=== PATIENT | female | born 1990 | race Two or more races ===

== ENCOUNTER 2021-12-09 10:02 | Day surgery (SDC) | payer OTHER ==
[~2021-12-09] VITALS: Ht 160 cm; Wt 59.4 kg
[~2021-12-09 10:02] MED LIST: LR 1,000 ML IV ONE; METR-265 PO
[2021-12-09] MEDS ORDERED: KETOROLAC 60MG 2ML VIAL As Ordered ONE (10:53)
[2021-12-09] MEDS ORDERED: ONDANSETRON 4MG/2ML VIAL As Ordered ONE (10:53)
[2021-12-09] MEDS ORDERED: LIDOCAINE 2% 100MG/5ML SDV (FOR ANES.) As Ordered ONE (10:53)
[2021-12-09] MEDS ORDERED: fentaNYL 100 MCG/2 ML INJECTION As Ordered ONE (10:53)
[2021-12-09] MEDS ORDERED: MIDAZOLAM INJ 2MG/2ML VIAL (J2250 PER 1MG) As Ordered ONE (10:53)
[2021-12-09] MEDS ORDERED: propofoL 500 MG/50 ML VIAL As Ordered ONE (10:53)
[2021-12-09] MEDS ORDERED: dexameTHASONE 4 MG/ML 1ML VIAL (J1100 PER 1MG) As Ordered ONE (10:53)
[2021-12-09 11:01] LABS: HEMATOCRIT 34.4 % (36.0-47.0); HEMOGLOBIN 12.2 g/dl (12.0-15.5); MEAN CORPUSCULAR HEMOGLOBIN 33.3 pg (27.0-33.0); MEAN CORPUSCULAR HGB CONC 35.5 g/dl (32.0-36.5); PLATELET COUNT, AUTOMATED 188 10^3/uL (150-450); RED BLOOD COUNT 3.66 10^6/uL (4.00-5.40); WHITE BLOOD COUNT 4.9 10^3/uL (4.0-10.0)
[2021-12-09 11:36] LABS: HCG, SERUM QUALITATIVE NEGATIVE (NEGATIVE)
[2021-12-09] MEDS ORDERED: ONDANSETRON 4MG/2ML VIAL IV PRN (12:50)
[2021-12-09] MEDS ORDERED: LR 1,000 ML IV SCH (12:50)
[2021-12-09] MEDS ORDERED: METOCLOPRAMIDE INJ 10MG/2ML VIAL (J2765 PER 1) IV PRN (12:50)
[2021-12-09] MEDS ORDERED: PERCOCET 5MG/325MG TAB PO PRN (12:50)
[2021-12-09 13:20] VITALS: BP 112/80
== END 2021-12-09 13:30 | disposition home or self-care (01) ==
LOC: M SDC 10:02
PROVIDERS: ATTEND Obstetrics & Gynecology
DX: T83.32XA Displacement of intrauterine contraceptive device, initial encounter (principal); F17.290 Nicotine dependence, other tobacco product, uncomplicated
CPT/HCPCS: 36415; 58562; 84703; 85027; 88300; J1100; J1885; J2250; J2405; J3010

== ENCOUNTER 2022-01-01 14:35 | Emergency (ER) | payer OTHER ==
[~2022-01-01] VITALS: Ht 160 cm; Wt 59.1 kg
[~2022-01-01 14:35] MED LIST changes: -LR 1,000 ML IV ONE
[2022-01-01 17:02] LABS: ERYTHROCYTE SEDIMENTATION RATE 5 mm/hr (0-20)
[2022-01-01 17:11] LABS: INR 1.05; PROTHROMBIN TIME 14.1 SECONDS (12.7-14.5)
[2022-01-01 17:12] LABS: PARTIAL THROMBOPLASTIN TIME 28.3 SECONDS (25.9-37.0)
[2022-01-01 17:13] LABS: ALT/SGPT 16 U/L (12-78); BILIRUBIN,DIRECT 0.1 MG/DL (0.0-0.2); BILIRUBIN,TOTAL 0.7 MG/DL (0.2-1.0); C REACTIVE PROTEIN QUANTITATIV < 0.30 MG/DL (0.00-0.30); TOTAL PROTEIN 6.9 GM/DL (6.4-8.2)
[2022-01-01] MEDS ORDERED: ISOVUE-370 76% 100ML VIAL As Ordered ONE (17:39)
[2022-01-01 17:51] LABS: BASO % 0.5 % (0.0-1.0); EOS # 0.1 10^3/uL (0.0-0.5); EOS % 1.3 % (0.0-3.0); HEMATOCRIT 38.3 % (36.0-47.0); HEMOGLOBIN 13.7 g/dl (12.0-15.5); LYMPH % 33.2 % (24.0-44.0); MEAN CORPUSCULAR HEMOGLOBIN 33.3 pg (27.0-33.0); MEAN CORPUSCULAR HGB CONC 35.8 g/dl (32.0-36.5); MONO # 0.5 10^3/uL (0.0-0.8); MONO % 7.9 % (2.0-8.0); NEUTROPHILS # 3.5 10^3/uL (1.5-8.5); NEUTROPHILS % 56.9 % (36.0-66.0); PLATELET COUNT, AUTOMATED 211 10^3/uL (150-450); RED BLOOD COUNT 4.12 10^6/uL (4.00-5.40); WHITE BLOOD COUNT 6.1 10^3/uL (4.0-10.0)
[2022-01-01] MEDS ORDERED: IBUP-1022 PO (18:53)
[2022-01-01 19:04] VITALS: BP 123/76
== END 2022-01-01 19:42 | disposition home or self-care (01) ==
LOC: M ED 14:35
DX: R07.89 Other chest pain (principal); R00.2 Palpitations; R51.9 Headache, unspecified; R42 Dizziness and giddiness; Z77.098 Contact with and (suspected) exposure to other hazardous, chiefly nonmedicinal, chemicals
CPT/HCPCS: 36415; 71275; 80047; 80076; 84702; 85025; 85610; 85652; 85730; 86140; 93005; 99284; Q9967

== ENCOUNTER 2022-03-20 13:04 | Emergency (ER) | payer OTHER ==
[~2022-03-20] VITALS: Ht 160 cm; Wt 58.3 kg
[~2022-03-20 13:04] MED LIST changes: +IBUP-1022 PO
[2022-03-20 13:52] VITALS: BP 125/80
== END 2022-03-20 17:42 | disposition left against medical advice (07) ==
LOC: M ED 13:04
DX: Z53.29 Procedure and treatment not carried out because of patient's decision for other reasons (principal)